=== PATIENT | male | born 1970 | race Caucasian/White ===

== ENCOUNTER 2018-06-22 01:00 | Emergency (ER) | payer MEDICAID, OTHER ==
[~2018-06-22] VITALS: Ht 188 cm; Wt 83.9 kg
[~2018-06-22 01:00] MED LIST: DIAZ10TA PO; METH20TA PO; OXYC30TA2 PO
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
--- NOTE | 2018-06-22 01:56 | NUR ---
Dr. Ld COOK MD at bedside to evaluate pt.
[2018-06-22] MEDS ORDERED: OXYCODONE/APAP 5-325 MG TABLET ONE (02:07)
[2018-06-22] MEDS ORDERED: OXYCODONE/APAP 5-325 MG TABLET PO ONE (02:15)
--- NOTE | 2018-06-22 02:18 | NUR ---
Patient discharged to home in stable conditon. Written and verbal after care instructions given. Patient verbalizes understanding of instructions. Pt ambulated out of ER in steady gait w friend who will drive home. All belongings w pt. VSS. NAD noted.
[2018-06-22 02:23] VITALS: BP 116/64
== END 2018-06-22 02:23 | disposition home or self-care (01) ==
LOC: ER 01:02
DX: R68.84 Jaw pain (principal); F17.200 Nicotine dependence, unspecified, uncomplicated; Z88.1 Allergy status to other antibiotic agents; Z79.891 Long term (current) use of opiate analgesic; Z79.899 Other long term (current) drug therapy
CPT/HCPCS: A4663

== ENCOUNTER 2018-07-23 22:41 | Emergency (ER) | payer MEDICAID, OTHER ==
[~2018-07-23] VITALS: Ht 188 cm; Wt 81.6 kg
[2018-07-23] MEDS ORDERED: HYDROMORPHONE 1 MG/1 ML DISP.SYRIN IV ONE (23:00)
[2018-07-23] MEDS ORDERED: ONDANSETRON 4 MG/2 ML VIAL IV ONE (23:00)
[2018-07-23] MEDS ORDERED: IV NORMAL SALINE 1000 ML BAG IV ONE (23:00)
[2018-07-23] MEDS ORDERED: ONDANSETRON 4 MG/2 ML VIAL ONE (23:11)
[2018-07-23] MEDS ORDERED: HYDROMORPHONE 1 MG/1 ML DISP.SYRIN ONE (23:11)
[2018-07-23] MEDS ORDERED: MORPHINE SULFATE 4 MG/1 ML DISP.SYRIN IV ONE (23:15)
[2018-07-23] MEDS ORDERED: MORPHINE SULFATE 4 MG/1 ML DISP.SYRIN ONE (23:17)
[2018-07-23 23:18] LABS: BASOPHILS % (AUTO) 0.5 % (0.0-2.0); EOSINOPHILS # (AUTO) 0.1 K/uL (0.0-0.7); EOSINOPHILS % (AUTO) 1.2 % (0.0-7.0); HEMATOCRIT 36.5 % (36.7-47.1); HEMOGLOBIN 12.3 g/dL (12.5-16.3); LYMPHOCYTES # (AUTO) 1.8 K/uL (20.0-40.0); LYMPHOCYTES % (AUTO) 24.4 % (20.5-51.5); MEAN CORPUSCULAR HEMOGLOBIN 29.7 uug (23.8-33.4); MEAN CORPUSCULAR HGB CONC 34 g/dL (32.5-36.3); MEAN CORPUSCULAR VOLUME 88.3 fL (73.0-96.2); MONOCYTES # (AUTO) 0.7 K/uL (2.0-10.0); MONOCYTES % (AUTO) 9.2 % (0.0-11.0); NEUTROPHILS # (AUTO) 4.6 K/uL (1.8-8.9); NEUTROPHILS % (AUTO) 64.7 % (38.5-71.5); PLATELET COUNT (AUTO) 294 K/uL (152-348); RED BLOOD CELL COUNT(AUTO) 4.14 MIL/uL (4.06-5.63); WHITE BLOOD COUNT (AUTO) 7.2 K/uL (3.6-10.2)
[2018-07-23 23:26] LABS: CREATININE 0.9 mg/dL (0.6-1.3); POTASSIUM 3.8 mmol/L (3.5-5.1)
[2018-07-23 23:38] LABS: BILIRUBIN,DIRECT 0.1 mg/dL (0.0-0.2); BILIRUBIN,TOTAL 0.3 mg/dL (0.2-1.0); TOTAL PROTEIN, SERUM 7.3 g/dL (6.4-8.2)
--- NOTE | 2018-07-24 00:40 | NUR ---
PATIENT SLEEPING WITH NO DISTRESS NOTED
--- NOTE | 2018-07-24 00:48 | NUR ---
IV removed. Catheter intact and site benign. Pressure and 4x4 gauze applied to site. No bleeding noted.
--- NOTE | 2018-07-24 00:53 | NUR ---
Patient discharged to home in stable conditon. Written and verbal after care instructions given. Patient verbalizes understanding of instructions. PATIENT STATES HE IS ALREADY ON ATIBIOTIC FOR PNA FROM BEING ADMITTED FOR PNA LAST WEEK FROM ANOTHER HOSPITAL. WALKED OUT OF ER WITH NO DISTRESS NOTED
[2018-07-24 00:55] VITALS: BP 125/78
== END 2018-07-24 00:56 | disposition home or self-care (01) ==
LOC: ER 22:43
DX: J18.9 Pneumonia, unspecified organism (principal); F17.200 Nicotine dependence, unspecified, uncomplicated; Z88.8 Allergy status to other drugs, medicaments and biological substances; Z79.899 Other long term (current) drug therapy
CPT/HCPCS: 36415; 71045; 80048; 80076; 83880; 84484; 85025; 85730; 93005; 96374; 96375; 99284; J2270; J2405; 70030-TC; A4663; J1170; J7030

== ENCOUNTER 2018-09-04 01:14 | Emergency (ER) | payer MEDICAID, OTHER ==
[~2018-09-04] VITALS: Ht 188 cm; Wt 83.9 kg
[2018-09-04] MEDS ORDERED: OXYCODONE/APAP 5-325 MG TABLET PO ONE (01:45)
[2018-09-04] MEDS ORDERED: OXYCODONE/APAP 5-325 MG TABLET ONE (01:50)
--- NOTE | 2018-09-04 01:51 | NUR ---
Patient discharged to home in stable conditon. Written and verbal after care instructions given. Patient verbalizes understanding of instructions. WALKED OUT OF ER WITH NO DISTRESS NOTED
[2018-09-04 01:52] VITALS: BP 127/70
== END 2018-09-04 01:56 | disposition home or self-care (01) ==
LOC: ER 01:20
DX: G89.29 Other chronic pain (principal); R68.84 Jaw pain; F17.200 Nicotine dependence, unspecified, uncomplicated; M54.9 Dorsalgia, unspecified; Z88.8 Allergy status to other drugs, medicaments and biological substances; Z79.899 Other long term (current) drug therapy
CPT/HCPCS: A4663

== ENCOUNTER 2018-09-20 08:02 | Emergency (ER) | payer MEDICAID ==
[~2018-09-20] VITALS: Ht 188 cm; Wt 83.9 kg
--- NOTE | 2018-09-20 08:21 | NUR ---
is at bedside doing the MSE.
--- NOTE | 2018-09-20 08:25 | NUR ---
Patient discharged to home in stable conditon. Written and verbal after care instructions given to patient. Patient verbalizes understanding of instructions. Chronic pain clinic referral was given & chronic pain management with extensive discussion was done by .
== END 2018-09-20 08:25 | disposition home or self-care (01) ==
LOC: ER 08:02
DX: G89.29 Other chronic pain (principal); R68.84 Jaw pain; F17.200 Nicotine dependence, unspecified, uncomplicated; Z88.8 Allergy status to other drugs, medicaments and biological substances; Z79.899 Other long term (current) drug therapy
CPT/HCPCS: A4663

== ENCOUNTER 2018-10-26 21:31 | Emergency (ER) | payer MEDICAID ==
[~2018-10-26] VITALS: Ht 188 cm; Wt 81.6 kg
[2018-10-26] MEDS ORDERED: OXYCODONE/APAP 5-325 MG TABLET ONE (22:13)
[2018-10-26] MEDS ORDERED: OXYCODONE/APAP 5-325 MG TABLET PO ONE (22:15)
--- NOTE | 2018-10-26 22:25 | NUR ---
Patient discharged to home in stable conditon with girlfriend taking patient home. Written and verbal after care instructions given. Patient verbalizes understanding of instructions. Walked out of ER with no distress noted
[2018-10-26 22:27] VITALS: BP 118/75
== END 2018-10-26 22:28 | disposition home or self-care (01) ==
LOC: ER 21:34
DX: G89.29 Other chronic pain (principal); R68.84 Jaw pain; M54.9 Dorsalgia, unspecified; F17.200 Nicotine dependence, unspecified, uncomplicated; Z88.8 Allergy status to other drugs, medicaments and biological substances; Z79.899 Other long term (current) drug therapy
CPT/HCPCS: A4663

== ENCOUNTER 2019-01-29 03:45 | Emergency (ER) | payer MEDICAID ==
[~2019-01-29] VITALS: Ht 188 cm; Wt 80.7 kg
[~2019-01-29 03:45] MED LIST changes: -OXYC30TA2 PO
--- NOTE | 2019-01-29 04:06 | NUR ---
Dr. Carbone in patients room at bedside.
[2019-01-29] MEDS: OXYCODONE/APAP 5-325 MG TABLET PO ONE (04:15)
--- NOTE | 2019-01-29 04:15 | NUR ---
Patient discharged to home in stable conditon. Written and verbal after care instructions given. Patient verbalizes understanding of instructions. patient exit care package and persnal belongings taken with patient. patient self ambulatory with steady gait. paptient stated that he will not be driving home and that his girlfriend will be taking him home. VSS.
[2019-01-29] MEDS ORDERED: OXYCODONE/APAP 5-325 MG TABLET ONE (04:16)
[2019-01-29 04:17] VITALS: BP 110/79
== END 2019-01-29 04:18 | disposition home or self-care (01) ==
LOC: ER 03:49
DX: R10.2 Pelvic and perineal pain (principal); F41.9 Anxiety disorder, unspecified; G89.29 Other chronic pain; M54.9 Dorsalgia, unspecified; F17.200 Nicotine dependence, unspecified, uncomplicated; Z76.0 Encounter for issue of repeat prescription; Z88.1 Allergy status to other antibiotic agents; Z79.899 Other long term (current) drug therapy
CPT/HCPCS: A4663

== ENCOUNTER 2019-03-11 01:30 | Emergency (ER) | payer MEDICAID ==
[~2019-03-11] VITALS: Ht 188 cm; Wt 79.4 kg
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
--- NOTE | 2019-03-11 02:01 | NUR ---
Dr. Jaffe on bedside for MSE.
--- NOTE | 2019-03-11 02:36 | NUR ---
Patient discharged to home in stable conditon. Written and verbal after care instructions given. Patient verbalizes understanding of instructions. Pt ambulated out of the ER with steady gait. All belongings with pt.
[2019-03-11 02:37] VITALS: BP 127/78
== END 2019-03-11 02:36 | disposition home or self-care (01) ==
LOC: ER 01:30
DX: Z01.89 Encounter for other specified special examinations (principal); F11.23 Opioid dependence with withdrawal; G89.29 Other chronic pain; M54.9 Dorsalgia, unspecified; F17.210 Nicotine dependence, cigarettes, uncomplicated; Z88.8 Allergy status to other drugs, medicaments and biological substances; Z79.899 Other long term (current) drug therapy
CPT/HCPCS: A4663

== ENCOUNTER 2019-07-13 02:27 | Emergency (ER) | payer MEDICAID ==
[~2019-07-13] VITALS: Ht 188 cm; Wt 81.6 kg
--- NOTE | 2019-07-13 02:46 | NUR ---
Dr. Bonilla at bedside for MSE.
[2019-07-13] MEDS ORDERED: OXYCODONE/APAP 5-325 MG TABLET ONE (02:52)
--- NOTE | 2019-07-13 02:53 | NUR ---
Patient discharged to home in stable conditon. Written and verbal after care instructions given. Patient verbalizes understanding of instructions. Pt ambulated out of ER with steady gait, no acute signs of distress, VSS, all belongings taken.
[2019-07-13 02:55] VITALS: BP 161/99
[2019-07-13] MEDS ORDERED: OXYCODONE/APAP 5-325 MG TABLET PO ONE (03:00)
== END 2019-07-13 02:55 | disposition home or self-care (01) ==
LOC: ER 02:36
DX: K08.89 Other specified disorders of teeth and supporting structures (principal); F17.210 Nicotine dependence, cigarettes, uncomplicated; Z88.1 Allergy status to other antibiotic agents; Z79.2 Long term (current) use of antibiotics; Z79.899 Other long term (current) drug therapy
CPT/HCPCS: A4663

== ENCOUNTER 2019-10-17 02:38 | Emergency (ER) | payer MEDICAID ==
[~2019-10-17 02:38] MED LIST changes: +AMOX500T2 PO
--- NOTE | 2019-10-17 02:53 | NUR ---
PATIENT LEFT WITHOUT BEING TRIAGED OR SEEN BY ERMD.
== END 2019-10-17 02:54 | disposition left against medical advice (07) ==
LOC: ER 02:40
DX: Z75.3 Unavailability and inaccessibility of health-care facilities (principal)